=== PATIENT | female | born 1985 | race Hispanic/Latino ===

== ENCOUNTER 2018-07-13 02:16 | Inpatient (IN) ==
[2018-07-13] MEDS ORDERED: LR 1,000 ML ONE (02:23)
[2018-07-13] MEDS ORDERED: SODIUM CHLORIDE ONE (02:23)
[2018-07-13] MEDS ORDERED: OXYTOCIN ONE (02:23)
[2018-07-13] MEDS ORDERED: AMPICILLIN 2 GM/NS 2 GM/100 ML IVPB IV ONE (02:27)
[2018-07-13 02:54] LABS: BASO# 0.03 X1000 (0.0-0.2); BASO% 0.3 % (0.0-0.8); HEMATOCRIT 34.3 % (37.0-47.0); HEMOGLOBIN 11.6 g/dL (12.0-16.0); IMM GRAN# 0.05 X1000 (0.0-0.04); IMM GRAN% 0.5 % (0.0-0.5); LYMPH# 3.36 X1000 (1.2-3.4); MCH 28.5 PG (27-31); MCHC 33.8 g/dL (33-37); MCV 84.3 FL (81-99); MONO# 0.79 X1000 (0.11-0.59); MONO% 7.5 % (1.7-9.3); MPV 10.7 FL (7.4-10.4); NEUT# 6.17 X1000 (1.4-6.5); NEUT% 58.7 % (42.2-75.2); PLT 302 X1000 (130-400); RBC 4.07 XMIL (4.2-5.4); RDW 14.1 % (11.5-14.5)
[2018-07-13 03:23] LABS: RAPID HIV PRESUMPTIVE NEGATIVE; RPR NON-REACTIVE (NONREACTIVE)
[2018-07-13] MEDS ORDERED: PITOCIN IM PRN (03:33)
[2018-07-13] MEDS ORDERED: ATARAX PO PRN (03:33)
[2018-07-13] MEDS ORDERED: BENADRYL IV PRN (03:33)
[2018-07-13] MEDS ORDERED: BENADRYL PO PRN (03:33)
[2018-07-13] MEDS ORDERED: M-M-R II VACCINE SUBQ ONE (03:33)
[2018-07-13] MEDS ORDERED: AMBIEN PO PRN (03:33)
[2018-07-13] MEDS ORDERED: BOOSTRIX VACCINE IM ONE (03:33)
[2018-07-13] MEDS ORDERED: XYLOCAINE-MPF 1% INJ PRN (03:33)
[2018-07-13] MEDS ORDERED: PERI MEDS (DERMOPLAST/NUPERCAINAL/TUCKS) MISC PRN (03:33)
[2018-07-13] MEDS ORDERED: HYDROXYZINE IM PRN (03:33)
[2018-07-13] MEDS ORDERED: CYTOTEC PO PRN (03:33)
[2018-07-13] MEDS ORDERED: PITOCIN 20 UNITS/NS 20 UNITS/1,000 ML IV.SOLN IV SCH (03:45)
[2018-07-13] MEDS ORDERED: PITOCIN 30 UNITS/NS 30 UNIT/500 ML IV.SOLN IV SCH (03:45)
[2018-07-13] MEDS ORDERED: FLAGYL PO ONE (03:51)
[2018-07-13] MEDS ORDERED: ZOFRAN IV ONE (04:02)
--- NOTE | 2018-07-13 04:06 | HISTORY AND PHYSICAL ---
CHIEF COMPLAINT: Back pain. HISTORY OF PRESENT ILLNESS: Patient is a 32-year-old Indonesian-speaking patient, G3, P2, who presented to the emergency room at [facility] at approximately 10:30 p.m. complaining of having back pain that was worsening. She was down in the emergency room for evaluation , Stated to the emergency room that she was having periods every month,and she did not know she was . Urine returned with trich positive and was given Rocephin shot in the ER for presumed UTI on UA, but continued to complain of pains. Upon triage nurse re-entry later back in the room with patient's coat off, she noticed she was , and they sent her to Labor and delivery. Again, she arrived to the emergency room at 10: 30 p.m. and arrived at Labor and delivery at 2:15 a.m. I was called, as labor and delivery nurses had checked the patient and all they could feel was a bag of water. Upon my arrival at 2:25, she was found on my exam to be 7 to 8 cm dilated. PAST MEDICAL HISTORY: Unremarkable. ALLERGIES: No known drug allergies. MEDICATIONS: None. SURGERIES: None. OBSTETRIC HISTORY: She has a 13-year-old and a 14-year-old at home, both boys. She states there were spontaneous vaginal deliveries at term and no problems. She reports that she has been having periods every month, and she last had a period a month ago. She did not know she was . I asked if she had been feeling any movement, and she just thought it was her stomach or gas. She has had absolutely no care. PHYSICAL EXAM: VITAL SIGNS: Stable, afebrile. GENERAL: Alert and oriented x3. Able to relax during contractions. CARDIOVASCULAR: Regular rate and rhythm. LUNGS: Clear to auscultation bilaterally. ABDOMEN: Bowel sounds present, soft, nondistended, nontender. Uterus gravid, nontender on palpation. Fundal height measures approximately 38 cm. PELVIC: Again, 7-8 cm with bulging bag on my check. EXTREMITIES: No calf pain. No edema. LAB WORK: A CBC was performed in the emergency room revealing a white count of 10.50, hemoglobin 11.6, hematocrit of 34.3, and platelet count of 302,000. UA of 4+ blood, negative nitrites, 2+ WBCs, greater than 10 epis, 3+ bacteria, and positive trichomonas. Glucose was 89. Remainder of lab work is all still pending. ASSESSMENT: 1. A 32-year-old G3, P2 at approximately 38 weeks gestation or at least term . 2. No care. 3. Unaware that she was , in active labor. PLAN: 1. Water is still intact. GBS was obtained. Penicillin was started at 2:30 a.m., as she was 7 to 8 cm. 2. heart tones 130s, reactive, reassuring with accelerations present. Category 1 tracing. Nawaf about every 2 to 3 minutes. Expectant management and expected vaginal delivery. cc: Ignacia Islas MD MTDD
--- NOTE | 2018-07-13 04:09 | OPERATIVE NOTE ---
PROCEDURE DATE: 07/13/2018 DELIVERY SUMMARY: The patient is a 32-year-old, G3, P2, female, who presented to the emergency department for complaints of back pain that was worsening. She had no idea she was , and stated that she was having periods every month. The patient remained in the emergency room from 10:30 p.m. to 2:15 a.m., when the ER nurse noted that her abdomen was gravid. Upon arrival to Labor and Delivery, a little after 2:15 and on check, nursing staff just felt a bag of water. On my arrival at 2:25 on check, she was 7 to 8 cm with a bulging bag. Fundal height was at 38 cm. Penicillin was started at 2:30 a.m. She was found to be complete at 2:54 a.m. and losing control with discomfort with contractions, feeling the urge to push. I did break her water. When AROM occurred, it was clear. She underwent a spontaneous vaginal delivery in the STEFAN position at 2:58 a.m. She had a 7 pound 1 ounce female infant, 9 and 10 Apgars at 1 and 5 minutes respectively. After the baby delivered, I did allow for 1 minute delay in cord clamping. The placenta spontaneously delivered at 3:03 a.m. Placenta grossly visually appeared intact. I did an uterine exploration. The uterus was firmed up nicely. There were no retained products of conception. On visualization of the external genitalia and vaginal area, she just had minimal bilateral superficial lacerations, more in the superior labial area. These were not actively bleeding and were not deep. There was no repair performed. EBL is estimated for 150 mL. panel as well as urine, GC and chlamydia, UDS, and GBS that was obtained upon my check are all still pending. Again, patient trich positive on urine. The patient states that she did not breast feed with either of her other children, and she is not wanting to breastfeed with this baby. I will go ahead and order for Flagyl treatment for trich. cc: MD DEEPA Rutherford
[2018-07-13] MEDS: MOTRIN PO PRN ×2 (04:35→23:37)
[2018-07-13 06:33] LABS: RUBELLA SCREEN IMMUNE (IMMUNE)
[2018-07-13] MEDS ORDERED: FLU VACCINE IM ONE (06:45)
[2018-07-13 06:51] LABS: UR AMPHETAMINES QUAL NONE DETECTED (NONE DETECT); UR BARBITUATES QUAL NONE DETECTED (NONE DETECT); UR BENZODIAZEPIN QUAL NONE DETECTED (NONE DETECT); UR CANNABINOIDS QUAL NONE DETECTED (NONE DETECT); UR COCAINE QUAL NONE DETECTED (NONE DETECT); UR METHADONE QUAL NONE DETECTED (NONE DETECT); UR METHAMPHETAMINE QUAL NONE DETECTED (NONE DETECT); UR OPIATES QUAL NONE DETECTED (NONE DETECT); UR OXYCODONE QUAL NONE DETECTED (NONE DETECT); UR PCP QUAL NONE DETECTED (NONE DETECT); UR PROPOXYPHENE QUAL NONE DETECTED (NONE DETECT); UR TCA QUAL NONE DETECTED (NONE DETECT)
[2018-07-13] MEDS ORDERED: LR 500 ML ONE (17:40)
[2018-07-13 17:51] LABS: HIV ANTIBODY SCREEN SEE COMMENTS
[2018-07-13] MEDS: PERICOLACE PO SCH (23:38)
[2018-07-14 07:26] LABS: BASO# 0.03 X1000 (0.0-0.2); BASO% 0.3 % (0.0-0.8); EOS# 0.16 X1000 (0.0-0.7); EOS% 1.5 % (0.0-10.0); HEMATOCRIT 30.5 % (37.0-47.0); IMM GRAN# 0.04 X1000 (0.0-0.04); IMM GRAN% 0.4 % (0.0-0.5); LYMPH# 4.27 X1000 (1.2-3.4); LYMPH% 38.9 % (20.5-51.1); MCHC 32.8 g/dL (33-37); MCV 85.4 FL (81-99); MONO# 0.87 X1000 (0.11-0.59); MONO% 7.9 % (1.7-9.3); PLT 275 X1000 (130-400); RBC 3.57 XMIL (4.2-5.4); RDW 14.3 % (11.5-14.5); WBC 10.97 X1000 (4.8-10.8)
[2018-07-14] MEDS: MOTRIN PO PRN (08:51)
[2018-07-14 12:33] LABS: HEPATITIS B SURFACE ANTIGEN SEE COMMENTS
[2018-07-14] MEDS: PERICOLACE PO SCH (20:33)
[2018-07-15] MEDS: MOTRIN PO PRN (00:27)
[2018-07-15 08:06] VITALS: BP 114/62
--- NOTE | 2018-07-15 08:54 | DISCHARGE SUMMARY ---
ADMISSION DATE: 07/13/2018 DISCHARGE DATE: 07/15/2018 ADMISSION DIAGNOSIS: A 32-year-old 3 para 2 at roughly 38 weeks gestation in active labor. No care. FINAL DIAGNOSIS: 1. A 32-year-old 3 para 2 at roughly 38 weeks gestation in active labor. No care. 2. Spontaneous vaginal delivery of a female 7 pounds 1 ounce, with Apgars 9 and 10 at 0303 on 07/13/2018 over intact perineum. PROCEDURE: Spontaneous vaginal delivery. BRIEF HISTORY: This is a 32-year-old 3 para 2 who was seen in the emergency room complaining of having back pain that was worsening and she did not know she was upon presentation to the emergency room, but was noted to have a gravid belly and she was sent to labor and delivery were she was dilated 7-8 cm. PAST MEDICAL HISTORY: Unremarkable. ALLERGIES: No known drug allergies. MEDICATIONS: None. SURGERIES: None. PAST OB HISTORY: 3 para 2 spontaneous vaginal delivery x2. No care this . PHYSICAL EXAMINATION: Vital signs: Afebrile. Vital signs stable. Heart: Regular rate and rhythm. Lungs: Clear to auscultation. Abdomen: Gravid, nontender. Fundal height roughly 38 cm. Cervical exam: Showed the cervix was dilated 7 to 8 cm with a bulging bag. Extremities: No edema noted. ASSESSMENT/PLAN: A 32-year-old female 3 para 2, roughly at 38 weeks, no care in active labor. heart tracing was reassuring and expectant management. The patient had a spontaneous vaginal delivery of a female infant, 7 pounds 1 ounce, with Apgars of 9 and 10 at 0303 on 07/13/2018 over intact perineum. care was unremarkable. Her hemoglobin was noted to be slightly anemic. Machine Design Teacher consult will be obtained due to her history of no care. DISCHARGE PLANS: The patient will be discharged home. She will follow up in 6 weeks for checkup. Instructed on pelvic rest for 6 weeks, lifting precautions for 6 weeks. Patient instructed to call for a temperature greater than 101, heavy vaginal bleeding, or severe abdominal pain and she was given prescriptions for [place] 5, dispensed 20, Motrin 800 mg, dispensed 30 with 2 refills and iron sulfate 325 mg, dispensed 30 with 1 refill and Colace 100 mg, dispensed 30 with 1 refill. cc: MD Ignacia Tamayo III, MD
== END 2018-07-15 11:45 | disposition home or self-care (01) | DRG 807 ==
LOC: P.LD 02:16
PROVIDERS: ADMIT Obstetrics & Gynecology; ATTEND Obstetrics & Gynecology
CPT/HCPCS: 59025; 80104; 80301; 80305; 82947; 85025; 86592; 86701; 86703; 86762; 86850; 86900; 86901; 87070; 87340; 87389; 87390; 87491; 87591; 90686; 90715; A9270; G0431; G0434; G0477; J0290; J2405; J2590; J7120